=== PATIENT | male | born 1980 | race Caucasian/White ===

== ENCOUNTER 2024-05-26 10:01 | Emergency (ER) | payer OTHER, SELFPAY ==
[2024-05-26 10:15] VITALS: BP 129/87; PULSE 88; RESP 16; TEMP 36.9; O2SAT 98; BMI 29.5
--- NOTE | 2024-05-26 11:00 | ED_ITS ---
HPI - Animal Bite 2 General: Chief Complaint: Animal Bite Stated Complaint: snake bite (black and funez) Time Seen by Provider: 05/26/24 10:49 Source: patient Mode of arrival: ambulatory Limitations: no limitations History of Present Illness: 43-year-old male states he was bitten on his left great toe by a snake roughly 2 hours ago. He states that his neck was green-black and did not believe that it was minimus. He has some bruising to his toe he has pain he rates a 6 out of 10. Is unsure when his last tetanus was and denies any other complaints Associated symptoms: Deny chills, fever(s) or headache(s) Review of Systems 2 Const: Denies: fever(s), chills, body aches or change in appetite ENMT: Denies: throat pain or dental pain Card: Denies: chest pain Resp: Denies: dyspnea GI: Denies: abdominal pain, nausea, vomiting or diarrhea Musc: Reports: extremity pain; Denies: neck pain or back pain Skin/Breast: Denies: rash Neuro: Denies: headache(s) Physical Exam 2 Const: COMMON NORMALS: no acute distress, patient oriented x3 and healthy appearing HENMT: COMMON NORMALS: normocephalic and atraumatic HEAD & SCALP: n ormocephalic and atraumatic Neck/C-Spine: COMMON NORMALS: full ROM and supple Chest: COMMONS NORMALS: normal inspection of the chest Resp: COMMON NORMALS: normal respiratory effort Cardio: COMMON NORMALS: regular rate RATE: regular rate Extremity: COMMON NORMALS: full ROM NARRATIVE EXTREMITY EXAM: Bruising noted to left great toe abrasion no definite puncture wounds no swelling Neuro: COMMON NORMALS: patient oriented x3, moves all extremities and no focal motor deficits Psych: COMMON NORMALS: mental status grossly normal, Normal thought process present and cooperative THOUGHT PROCESS: Normal thought process present Skin: COMMON NORMALS: no rashes or lesions noted and no wounds GENERAL SKIN EXAM: no rashes or lesions noted Course 2 Vital Signs: Vital signs: Vital Signs Temperature 98.5 F 05/26/24 10:15 Pulse Rate 88 05/26/24 10:15 Respiratory Rate 16 05/26/24 10:15 Blood Pressure 129/87 05/26/24 10:15 Pulse Oximetry 98 05/26/24 10:15 Oxygen Delivery Me thod Room Air 05/26/24 10:15 MDM - Animal Bite Medical Decision Making Patient presents here with snake bite to the great toe on the left no signs of envenomation here he just has some superficial abrasion with slight bruising did observe for 2 hours had no progression he is stable for discharge follow-up PCP return if worsening Medical Records I reviewed the patient's medical records. Lab Data I reviewed the patient's lab results. 05/26/24 11:17 05/26/24 11:17 Laboratory Results WBC 5.23 10^3/uL (3.29-11.43) 05/26/24 11:17 RBC 4.53 10^6/uL (3.85-5.65) 05/26/24 11:17 Hgb 13.90 g/dL (11.27-16.99) 05/26/24 11:17 Hct 41.6 % (37-53) 05/26/24 11:17 MCV 91.8 fl (82-101) 05/26/24 11:17 MCH 30.7 pg (27-33) 05/26/24 11:17 MCHC 33.4 g/dL (30-55) 05/26/24 11:17 RDW 12.3 % (12.1-15.1) 05/26/24 11:17 Plt Count 192 10^3/cmm (157-399) 05/26/24 11:17 MPV 10.9 fL (7.4-10.4) H 05/26/24 11:17 Neut % (Auto) 71.5 % 05/26/24 11:17 Lymph % (Auto) 18.7 % 05/26/24 11:17 Isabella % (Auto) 7.6 % 05/26/24 11:17 Eos % (Auto) 1.0 % 05/26/24 11:17 Baso % (Auto) 1.0 % 05/26/24 11:17 Neut # (Auto) 3.74 10^3/uL (1.8-7.7) 05/26/24 11:17 Lymph # (Auto) 1.0 10^3/uL (0.8-4.8) 05/26/24 11:17 Isabella # (Auto) 0.4 10^3/uL (0.2-0.9) 05/26/24 11:17 Eos # (Auto) 0.1 10^3/uL (0.0-0.8) 05/26/24 11:17 Baso # (Auto) 0.1 10^3/uL (0.0-0.1) 05/26/24 11:17 Nucleated RBC % (auto) 0 % 05/26/24 11:17 Nucleated RBCs # 0.0 /100WBC 05/26/24 11:17 PT 14.10 SECONDS (12.1-14.9) 05/26/24 11:17 INR 1.06 (0.8-1.2) 05/26/24 11:17 Sodium 138 mmol/L (136-145) 05/26/24 11:17 Potassium 4.7 mmol/L (3.5-5.1) 05/26/24 11:17 Chloride 104 mmol/L (98-107) 05/26/24 11:17 Carbon Dioxide 23 mmol/L (22-29) 05/26/24 11:17 Anion Gap 15.7 (5-19) 05/26/24 11:17 BUN 18 mg/dL (6-20) 05/26/24 11:17 Creatinine 1.1 mg/dL (0.7-1.2) 05/26/24 11:17 GFR Calculation 72.7 mL/min (90-130) L 05/26/24 11:17 Glucose 115 mg/dL (65-115) 05/26/24 11:17 Calculated Osmolality 289 mOsm/kg (285-295) 05/26/24 11:17 Calcium 9.0 mg/dL (8.5-10.5) 05/26/24 11:17 Total Bilirubin 0.3 mg/dL (0.15-1.2) 05/26/24 11:17 AST 21 U/L (0-40) 05/26/24 11:17 ALT 23 U/L (0-41) 05/26/24 11:17 Alkaline Phosphatase 85 U/L (40-130) 05/26/24 11:17 Total Protein 6.9 g/dL (6.6-8.7) 05/26/24 11:17 Albumin 4.3 g/dL (3.5-5.2) 05/26/24 11:17 Globulin 2.6 g/dL (1.3-4.6) 05/26/24 11:17 All radiology interpretation(s) finalized by discharge Discharge Plan Discharge Patient Disposition: Home Clinical Impression: Snake bite Condition: Stable Discharge Orders: Discharge ED (Routine); Ordered 05/26/24 Ordered By: Andi Lora Discharge Diet: Advance as tolerated Discharge Activity: Resume usual activity Patient Instructions: Snake Bite (ED) Coding Level of Care Code ED [employer] [facility]
[2024-05-26] MEDS: HYDROcodone-acetaminophen 5-325 mg Tablet 1 TAB PO (11:20)
[2024-05-26] MEDS: tetanus-dipt-pertussis 0.5 mL SDV IM (11:21)
[2024-05-26 11:28] LABS: Basophils # 0.1 10^3/uL (0.0-0.1); Eosinophils # 0.1 10^3/uL (0.0-0.8); Hematocrit 41.6 % (37-53); Lymphocytes % 18.7 %; Mean Corpuscular HGB Conc 33.4 g/dL (30-55); Mean Corpuscular Hemoglobin 30.7 pg (27-33); Mean Corpuscular Volume 91.8 fl (82-101); Mean Platelet Volume 10.9 fL (7.4-10.4); Monocytes # 0.4 10^3/uL (0.2-0.9); Monocytes % 7.6 %; Neutrophils # 3.74 10^3/uL (1.8-7.7); Neutrophils % 71.5 %; Nucleated Red Blood Cells % 0 %; Platelet Count 192 10^3/cmm (157-399); Red Blood Count 4.53 10^6/uL (3.85-5.65); Red Cell Distribution Width 12.3 % (12.1-15.1); White Blood Count 5.23 10^3/uL (3.29-11.43)
[2024-05-26 11:36] LABS: INR 1.06 (0.8-1.2)
[2024-05-26 11:41] LABS: Alanine Aminotransferase 23 U/L (0-41); Albumin Level 4.3 g/dL (3.5-5.2); Alkaline Phosphatase 85 U/L (40-130); Anion Gap 15.7 (5-19); Aspartate Amino Transferase 21 U/L (0-40); Blood Urea Nitrogen 18 mg/dL (6-20); Carbon Dioxide 23 mmol/L (22-29); Chloride 104 mmol/L (98-107); Creatinine Clr Calc Pharmacy 95.4027; Globulin 2.6 g/dL (1.3-4.6); Glomerular Filtration Rate 72.7 mL/min (90-130); Glucose 115 mg/dL (65-115); Osmolality Calculated 289 mOsm/kg (285-295); Potassium 4.7 mmol/L (3.5-5.1); Sodium 138 mmol/L (136-145); Total Bilirubin 0.3 mg/dL (0.15-1.2); Total Protein 6.9 g/dL (6.6-8.7)
[2024-05-26 12:21] VITALS: BP 127/84; PULSE 71; RESP 16; TEMP 36.9; O2SAT 99
--- NOTE | 2024-05-26 20:56 | PC.NURSE ---
Spoke with spouse on phone with concern of localized swelling from snake bite that happened this morning. Spouse was worried about the wound drainage. Spoke with Doctor Guido, whom gave order for keflex 500mg tid for 7 days. Spouse states that she will molded [employer] spot picker the medication tomorrow.
== END 2024-05-26 12:10 | disposition home or self-care (01) ==
PROVIDERS: Emergency Provider Emergency Medicine
DX: S90.472A Other superficial bite of left great toe, initial encounter (principal); W59.11XA Bitten by nonvenomous snake, initial encounter; Z23 Encounter for immunization
CPT/HCPCS: 36415; 80053; 85025; 85610; 90715; 99283